=== PATIENT | male | born 1930 | race Caucasian/White ===

== ENCOUNTER 2017-03-18 07:14 | Observation (INO) ==
--- NOTE | 2017-03-18 07:38 | Emergency Department Report ---
General Adult HPI - General Chief complaint: Extremity Problem,Nontraumatic Stated complaint: L leg swollen to knee Time Seen by Provider: 03/18/17 07:27 Source: patient Mode of arrival: ambulatory Limitations: no limitations - History of Present Illness HPI narrative: 87-year-old male presents to the emergency department with the chief complaint of swelling to the left lower extremity below the knee. Patient noted onset of symptoms on of this past week and denies any trauma or injury. Patient describes his discomfort as being located in the calf. No radiation. Pain is dull. Pain is mild. He notes that the discomfort does increase with ambulation and improves with rest and positioning. Patient does note that he is anticoagulated with Coumadin due to a mechanical heart valve. No other complaints or associated symptoms. - Related Data Home Medications Medication Instructions Recorded Confirmed Warfarin Sodium 1 tab PO 6XW #0 03/04/10 03/18/17 [place]-3 Fatty Acids (Fish Oil) 1 cap PO BID #0 08/06/14 03/18/17 Vit C/Vit E AC/Lut/Copper/Zinc 1 cap PO BID #0 08/06/14 03/18/17 [Preservision Lutein Softgel] Warfarin Sodium 0.5 tab PO WEEKLY #0 04/11/15 03/18/17 Acetaminophen [Tylenol] 500 mg PO BID PRN 03/18/17 03/18/17 Allergies Allergy/AdvReac Type Severity Reaction Status Date / Time No Known Drug Allergies Allergy Unknown Verified 03/18/17 12:18 Review of Systems Constitutional: Denies: fever, chills Eyes: Denies: eye pain, vision change ENT: Denies: ear pain, throat pain Cardiovascular: Denies: chest pain, palpitations Respiratory: Denies: cough, dyspnea Gastrointestinal: Denies: abdominal pain, nausea, vomiting, diarrhea Genitourinary: Denies: urgency, dysuria Musculoskeletal: Denies: back pain, arthralgia Integumentary: Denies: erythema, rash Neurological: Denies: headache, numbness, paresthesias Psychiatric: Denies: anxiety, depression Endocrine: Denies: fatigue, heat or cold intolerance Hematological/Lymphatic: Denies: easy bleeding, easy bruising Allergic/Immunologic: Denies: facial swelling, urticaria PFSH Patient Stated Medical History Macular Degeneration Yes Other Cardiology Yes: ARTIFICIAL VALVE Hx Kidney Stones Yes Other Hematologic Yes: ON WARFARIN BECAUSE OF ARTIFICIAL VALVE Osteoarthritis Yes Shingles Yes Surgical History: Valve Replacement Family History: Reviewed and Non-contributory. - Social History Smoking status: Never smoker Substance use type: does not use Alcohol intake frequency: does not drink Physical Exam - Limitations Limitations: no limitations - General General appearance: alert, in no apparent distress - Normal Exams: Head:: Normocephalic without trauma Eyes:: Pupils are PERRLA w/ EOMI, No scleral icterus, irritation, or foreign bodies noted ENMT:: No facial trauma, nasal exudates, pharyngeal erythema, or exudates are noted Dental: No fractured, loose, or missing teeth noted Neck:: Full range of motion, without adenopathy, JVD, bruits or thyromegaly Chest/Respirations:: Clear all kendall, with good airflow, and symmetry bilaterally Cardiovascular:: Regular rate and rhythm, without murmur or gallop, Pulses 2+ all extremities, capillary refill, <2 seconds all extremities Abdomen:: Bowel sounds positive, soft, non-tender, non-distended, no hepatosplenomegaly, masses or bruits noted Lymphatic:: No lymphadenopathy, or lymphedema noted Musculoskeletal:: No tenderness, or deformity noted, good range of motion, all extremities (LLE - full range of motion. Skin is intact. No erythema. Slight edema is noted. Tender to palpation in the posterior calf without focal bony tenderness. No other tenderness in the left lower extremity. Pulses are intact. Sensation intact. Capillary refill less than 2. All other extremities are unremarkable.) Integumentary:: No rashes, hives, or bruising noted, hair and nails, without abnormality Neurological:: Patient is alert, and oriented, cranial nerves, motor/sensory/ cerebellar, exams w/o gross deficits, to observation Psychiatric:: Patient exhibits, appropriate attention, emotion and affect Course Vital Signs Temperature 98.8 F 03/18/17 07:20 Pulse Rate 65 03/18/17 07:20 Respiratory Rate 18 03/18/17 07:20 Blood Pressure 138/75 03/18/17 07:20 Pulse Oximetry 96 03/18/17 07:20 Temperature 96 F L 03/18/17 12:21 Pulse Rate 68 03/18/17 12:21 Respiratory Rate 16 03/18/17 12:21 Blood Pressure 170/74 H 03/18/17 12:21 Pulse Oximetry 97 03/18/17 12:21 Medical Decision Making - [facility] Narrative Medical decision making narrative: Labs / imaging were discussed in detail with the patient and family and questions are answered. Patient declined offered analgesic pain medication in the emergency Department. Patient is evaluated by orthopedics (Dr. Brady) in the emergency department who recommended admission for observation but no concerning findings for compartment syndrome. Patient will be admitted for further evaluation in the hospital setting. Patient is anticoagulated for a mechanical heart valve and has a hematoma in the LLE. Patient is admitted to the service of Dr. Mcgregor in improved condition. No further orders from accepting physician who is in agreement with the current plan of management. Patient and family are in agreement with the current plan of management. The potential reversal of anticoagulation will be left up to the accepting physician due to the patient having a mechanical heart valve. Patient is clinically stable in the emergency department at this time. - Differential Diagnosis DVT, calf strain, hematoma, fracture - Lab Data Result diagrams: 03/18/17 07:45 03/18/17 07:45 Lab Results 03/18/17 03/18/17 03/18/17 Range/Units 07:45 07:45 07:45 WBC 7.2 (4.5-11.0) T/MM3 RBC 3.89 L (4.50-5.90) M/MM3 Hgb 12.3 L (13.5-17.5) GM/DL Hct 36.4 L (41-53) % MCV 93.6 (80-100) UM3 MCH 31.6 (26-34) UUG MCHC 33.8 (31-37) GM/DL RDW Std Deviation 42.0 (36.9-50.2) FL Plt Count 112 L (130-400) T/MM3 MPV 10.0 (9.4-12.4) UM3 Immature Gran % (Auto) 0.3 (0.0-0.5) % Neut % (Auto) 71.8 H (33-66) % Lymph % (Auto) 16.6 L (23-45) % Mckenzie % (Auto) 9.2 H (0-9.0) % Eos % (Auto) 1.5 (0-4) % Baso % (Auto) 0.6 (0-2) % Neut # (Auto) 5.1 (1.8-7.7) T/MM3 Lymph # (Auto) 1.2 (1-4.8) T/MM3 Mckenzie # (Auto) 0.7 (0-0.8) T/MM3 Eos # (Auto) 0.1 (0-0.5) T/MM3 Baso # (Auto) 0.0 (0-0.2) T/MM3 Abs Immat Gran (auto) 0.02 (0.00-0.03) T/MM3 INR 2.33 H (0.99-1.21) Turbidity < 20 (0-20) Sodium 139 (134-144) MEQ/L Potassium 4.1 (3.6-5) MEQ/L Chloride 106 (98-107) MEQ/L Carbon Dioxide 24 (22-30) MEQ/L Anion Gap 9 (5-15) MEQ/L BUN 23.0 H (9-20) MG/DL Creatinine 1.0 (0.8-1.5) MG/DL GFR Calculation 70 BUN/Creatinine Ratio 23 (6-26) RATIO Glucose 122 H (75-110) MG/DL Calculated Osmolality 273 (261-280) MOSM/KG Calcium 8.8 (8.4-10.2) MG/DL Icterus Index < 2 (0-7) Specimen Hemolysis < 15 (0-25) - Radiology Data X-ray tibia/fibula: No acute processes. Duplex ultrasound: Negative for DVT. + 10 cm 15 cm hematoma in the calf. Arterial ultrasound: Extensive calcified plaque throughout the left lower extremity. Significant stenosis within the right superficial femoral. Disposition Clinical Impression: Hematoma Disposition: 02 To [facility] Condition: Improved Time of Disposition: 10:15 - Seen By: physician
[2017-03-18 12:12] VITALS: BMI 23.6
[2017-03-18] MEDS ORDERED: WARFARIN - PHARMACY CONSULT MC ONE (14:32)
[2017-03-18] MEDS ORDERED: ACETAMINOPHEN 500 MG TABLET PO PRN (14:33)
--- NOTE | 2017-03-18 14:43 | History & Physical Report ---
<Vannessa Ryder Eulalio - Last Filed: 03/18/17 14:36> History of Present Illness Date: 03/18/17 (PCP: Dr. 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 He is normally very active and healthy, but reports that he developed some spontaneous bruising of left thumb area a week or two ago. He did see his PCP, and was not found to have any other acute issues. Late this week, he developed progressive pain of his left leg. Overnight it became much worse, with severe pain with standing. He came into the ER, and was found to have a large hematoma of the posterior popliteal area. He is admitted for pain control and to monitor for compartment syndrome. He denies any recent injury to left leg. He identifies that he was cutting up brush two weeks ago, but does not believe that he injured his leg. He denies taking any ibuprofen. He sparingly uses Tylenol for pain. He reports that he has been using fish old for the last 4-5 months for heart health. Has changed brands of fish oil in the last few weeks to one that is "very expensive" that he purchases at a [employer] food store. He reports that it is supposed to be "very strong." He states normal dosing is 3 tabs, but he is taking two per day. He also takes a vision supplement. Denies any other herbal supplements. Does acknowledge a history of AVR, mechanical valve. Follows with Dr. Daniel Wick at [facility]. INR is monitored by Cardiology. Did have an elevated INR of 4.4 within the last two weeks, and warfarin did need to be adjusted. He is otherwise healthy. Review of Systems All systems PM: 10-point ROS was reviewed, no additional remarkable complaints except - EENMT Eyes: Present: other (Macular degeneration) Nose: Absent: nosebleeds - Cardiovascular Cardiovascular: Present: heart murmur. Absent: chest pain, dyspnea on exertion , orthopnea, edema Rhythm: Present: regular rhythm Vascular: Absent: intermittent claudication - Respiratory Respiratory: Absent: cough, dyspnea - Musculoskeletal Musculoskeletal: Present: joint swelling, myalgias (Left leg pain, worse with standing. ) - Hematologic/Lymphatic Hematologic/Lymphatic: Present: easy bruising [facility] Patient Stated Medical History Macular Degeneration Yes Other Cardiology Yes: ARTIFICIAL VALVE Hx Kidney Stones Yes Other Hematologic Yes: ON WARFARIN BECAUSE OF ARTIFICIAL VALVE Osteoarthritis Yes Shingles Yes Clinic Medical History Hematoma (Acute Medical) AVR, mechanical -Dr. Daniel Wick Ruptured tendon right shoulder 2015. Surgical History: Aortic Mechanical Valve Replacement. Left knee- Dr. Smyth Family History: Father- Cancer 90 yo Mother- Colon Ca Brother- Dementia, DM2, CHF Sister (Twin)- CHF - Social History Smoking status: Never smoker Substance use type: does not use Alcohol intake frequency: does not drink Current occupational status: employed Current residence: Apartment/Private Home Medications Home Medications Medication Instructions Recorded Confirmed Type Warfarin Sodium 1 tab PO 6XW #0 03/04/10 03/18/17 History [place]-3 Fatty Acids (Fish Oil) 1 cap PO BID #0 08/06/14 03/18/17 History Vit C/Vit E AC/Lut/Copper/Zinc 1 cap PO BID #0 08/06/14 03/18/17 History [Preservision Lutein Softgel] Warfarin Sodium 0.5 tab PO WEEKLY #0 04/11/15 03/18/17 History Acetaminophen [Tylenol] 500 mg PO BID PRN 03/18/17 03/18/17 History Allergies Allergy/AdvReac Type Severity Reaction Status Date / Time No Known Drug Allergies Allergy Unknown Verified 03/18/17 12:18 Exam Vital Signs: Temperature 96 F L 03/18/17 12:21 Pulse Rate 68 03/18/17 12:21 Respiratory Rate 16 03/18/17 12:21 Blood Pressure 170/74 H 03/18/17 12:21 Pulse Oximetry 97 03/18/17 12:21 Height/Weight/BMI: Height 1.78 m Weight 74.6 kg Body Mass Index 23.6 - Constitutional Present: no acute distress, average body habitus, cooperative - Routine HEENT Exam Head: Present: normocephalic, atraumatic Eye: Present: EOMI, PERRL ENT: Present: mucous membranes moist - Routine Neck Exam Present: supple, full ROM - Routine Respiratory Exam Present: CTA bilaterally. Absent: rhonchi, wheezes, crackles, distant breath sounds - Routine Cardiovascular Exam Present: RRR, S1, S2, murmur (Mechanical valve-click) - Routine Abdominal Exam Present: soft, non distended, non tender - Routine Extremities Exam Present: calf tenderness, tenderness. Absent: cyanosis, clubbing, Jose's sign Comments: Left calf tender, mild swelling. Warm, soft. Palpable pulse. No discoloration. Left thumb with healing bruise. - Routine Skin Exam Present: intact, dry, warm - Routine Neurological Exam Present: alert, oriented X3, moving all extremities - Routine Psychiatric Exam Present: normal affect, normal thought process, cooperative, good insight, good judgment Results - Labs CBC & Chem 7: 03/18/17 07:45 03/18/17 07:45 - Impressions - Radiology Data X-ray tibia/fibula: No acute processes. Duplex ultrasound: Negative for DVT. + 10 cm 15 cm hematoma in the calf. Arterial ultrasound: Extensive calcified plaque throughout the left lower extremity. Significant stenosis within the right superficial femoral. Assessment and Plan (1) Hematoma Current visit: Yes Status: Acute Assessment and Plan: Impression: Left leg spontaneous hematoma Chronic anticoagulation. S/P Mechanical AVR Hypertension. Spontaneous bleeding Risk for compartment syndrome. Plan: 03/18/17 Monitor leg circumference and neurovascular checks. Pain control. Pharmacy to assist with INR monitoring. INR is therapeutic. Check PTT as well. Suspect fish oil supplement may have contributed to spontaneous bleeding. Have counselled pt to stop this supplement. BP has been consistently elevated here. Will start low dose Norvasc. Repeat labs in AM for stability. DVT Prophylaxis: Coumadin Resuscitation Status: Full Code Hospital Course Summary Disclaimer: The visit summary below is not to be considered part of the above Progress Note. Hospital Course: Impression: Left leg spontaneous hematoma Chronic anticoagulation. S/P Mechanical AVR Hypertension. Spontaneous bleeding Risk for compartment syndrome 03/18/17 14:52 03/18/17 Monitor leg circumference and neurovascular checks. Pain control. Pharmacy to assist with INR monitoring. INR is therapeutic. Check PTT as well. Suspect fish oil supplement may have contributed to spontaneous bleeding. Have counselled pt to stop this supplement. BP has been consistently elevated here. Will start low dose Norvasc. Repeat labs in AM for stability. 03/18/17 14:53 <Melissa Mcgregor - Last Filed: 03/18/17 17:59> History of Present Illness Date: 03/18/17 [facility] Patient Stated Medical History Macular Degeneration Yes Other Cardiology Yes: ARTIFICIAL VALVE Hx Kidney Stones Yes Other Hematologic Yes: ON WARFARIN BECAUSE OF ARTIFICIAL VALVE Osteoarthritis Yes Shingles Yes Clinic Medical History Hematoma (Acute Medical) Exam Vital Signs: Temperature 96.9 F 03/18/17 15:20 Pulse Rate 76 03/18/17 15:20 Respiratory Rate 16 03/18/17 15:20 Blood Pressure 121/67 03/18/17 15:20 Pulse Oximetry 95 03/18/17 15:20 Height/Weight/BMI: Height 1.78 m Weight 74.6 kg Body Mass Index 23.6 Results - Labs CBC & Chem 7: 03/18/17 07:45 03/18/17 07:45 Assessment and Plan (1) Hematoma Current visit: Yes Status: Acute Assessment and Plan: Mcehe COFFMAN Mr. Bello was interviewed and examined by me. He has lots of family in the room with him. He states he is feeling much better. His leg is still a bit painful. He denies any lightheadedness dizziness. Denies any headache. He denies shortness of breath, PND or orthopnea. He denies chest discomfort, palpitations. He denies any abdominal pain, nausea, vomiting. He occasionally gets some constipation. He denies diarrhea. He denies melena and hematochezia. He generally has no problems with lower extremity edema. Currently his left lower extremity is swollen and tight in the calf region. He has one plus lower extremity edema on that side. He was evaluated by in the ER who did not feel there was indication for intervention at this time. His x-rays have been fine. His lab looks pretty good. This INR is 2.33. His mechanical valve is in the aortic position putting him at lower risk than if it would've been in the mitral position. We will try to allow his INR to trending downward. We need to stop his fish oil. His blood pressures have been elevated here so Norvasc 2.5 mg has been started. 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 Wick. In general he is alert and oriented in no acute distress.HEENT exam is unremarkable. His neck is supple without JVD. His carotids are 2+ and upstroke with out bruits. His lungs are clear bilaterally. His heart is regular. He has a crisp prosthetic click. He has a 2/6 systolic ejection murmur in the right upper sternal border. His abdomen is soft, nontender, nondistended with positive bowel sounds. His left lower extremity is as described above. His right lower extremity has no edema. I have reviewed his labs, notes and imaging. I agree with [facility]IE[facility] PHARMACIST assessment and plan. Hospital Course Summary Disclaimer: The visit summary below is not to be considered part of the above Progress Note.
--- NOTE | 2017-03-18 15:06 | Pharmacy Consult ---
Pharmacy Consult-Warfarin - Laboratory Information MU is 87yo M admitted via ED for LLE swelling, hematoma. Hx of Mechanical Aortic Valve replacement. On warfarin 5mg po daily, except 2.5mg on . Baseline INR today = 2.33. Will continue with same regimen. He has not had his dose today yet. Will give Warfarin 5mg today. No drug - drug interactions noted. Thank you.
[2017-03-18] MEDS: AMLODIPINE 2.5 MG TABLET PO SCH (15:19)
[2017-03-18] MEDS ORDERED: WARFARIN 5 MG TABLET PO SCH (16:00)
[2017-03-18] MEDS: HYDROCODONE/APAP 5mg/325mg TABLET PO PRN ×2 (16:14→21:52)
[2017-03-19] MEDS: HYDROCODONE/APAP 5mg/325mg TABLET PO PRN ×2 (06:21→22:43)
--- NOTE | 2017-03-19 08:59 | Pharmacy Consult ---
Pharmacy Consult-Warfarin - Laboratory Information 03/19/17 04:03 INR 2.31 H - Consult Information Warfarin 5mg po ordered for noon today. Thank you.
[2017-03-19] MEDS: AMLODIPINE 2.5 MG TABLET PO SCH (09:23)
[2017-03-19] MEDS: SALINE FLUSH 10ml SYRINGE IVF PRN (09:23)
--- NOTE | 2017-03-19 09:38 | Ultrasound Report ---
Indication: Left leg Swelling and redness PROCEDURE: US venous doppler LE LT: Encounter: Initial Comparison: None Technique: Color Doppler duplex and grayscale sonographic imaging of the left lower extremity was performed. Findings: There is no evidence for acute deep venous thrombosis in the left thigh. Specifically, serial graded compression was performed from the inguinal ligament to the popliteal bifurcation, on the left thigh, demonstrating appropriate compressibility of the deep venous system. In addition, color and pulsed Doppler demonstrate appropriate spontaneous flow, variation with respiration, and augmentation with calf compression. At the ankle, normal flow is identified in the posterior tibial veins; these vessels are also normal in caliber. Very large hematoma in the calf area measuring over 15 cm in maximal diameter. Impression: No evidence of acute DVT in the left lower limb. Very large hematoma in the popliteal and calf region. There is a preliminary report by [facility]. .
--- NOTE | 2017-03-19 09:40 | Ultrasound Report ---
Indication: Left leg pain, Swelling PROCEDURE: US arterial duplex LE LT: Technique: Grayscale color and duplex Doppler imaging was performed of the arterial tree of the left leg. Findings: LEFT LEG (cm/sec) Common Femoral 119 Superficial Femoral Proximal 109 Mid 92 Distal 327 Popliteal 125 EDNA-prox 63.5 MUCK MINER BLASTING-prox 68.8 EDNA-dist 33.1 MUCK MINER BLASTING-dist 52.4 Dampened waveforms throughout the left lower cavity arteries with focal velocity elevation in the distal superficial femoral artery. 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 No complete occlusion. There is a preliminary report by [facility]. .
--- NOTE | 2017-03-19 09:42 | XRay Report ---
Indication: Left leg Pain PROCEDURE: XR tib/fib LT 2V: Encounter: Initial Comparison: None Findings: There is no acute fracture, dislocation or malalignment identified. Impression: No acute osseous abnormality. .
[2017-03-19] MEDS ORDERED: POM WARFARIN 5 MG TABLET PO SCH (12:00)
--- NOTE | 2017-03-19 13:24 | Progress Note ---
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 He is normally very active and healthy, but reports that he developed some spontaneous bruising of left thumb area a week or two ago. He did see his PCP, and was not found to have any other acute issues. Late this week, he developed progressive pain of his left leg. Overnight it became much worse, with severe pain with standing. He came into the ER, and was found to have a large hematoma of the posterior popliteal area. He is admitted for pain control and to monitor for compartment syndrome. He denies any recent injury to left leg. He identifies that he was cutting up brush two weeks ago, but does not believe that he injured his leg. He denies taking any ibuprofen. He sparingly uses Tylenol for pain. He reports that he has been using fish old for the last 4-5 months for heart health. Has changed brands of fish oil in the last few weeks to one that is "very expensive" that he purchases at a [employer] store. He reports that it is supposed to be "very strong." He states normal dosing is 3 tabs, but he is taking two per day. He also takes a vision supplement. Denies any other herbal supplements. Does acknowledge a history of AVR, mechanical valve. Follows with Dr. Daniel Wick at [facility]. INR is monitored by Cardiology. Did have an elevated INR of 4.4 within the last two weeks, and warfarin did need to be adjusted. He is otherwise healthy. Today he is feeling a little better with less pain in the right calf. His distal pulses are still good. No other complaints. Eating and drinking well. No BM since admission. Will start miralax as he is on narcs for pain relief. Voiding fine. Objective Vital signs: Temperature 95.8 F L 03/19/17 07:53 Pulse Rate 55 L 03/19/17 07:53 Respiratory Rate 18 03/19/17 07:53 Blood Pressure 132/64 03/19/17 07:53 Pulse Oximetry 95 03/19/17 07:53 Rhythm: Atrial Fibrillation with Normal Ventricular Rate Height/Weight/BMI: Height 1.78 m Weight 76.2 kg Body Mass Index 23.6 Comments: Gen: alert and oriented. NAD Skin: warm and dry HEENT: NC/AT PERRL, EOMI, Sclera, lids and conjunctiva wnl. MMM. OP clear. Neck: No JVD, Carotids 2+ without bruits Lungs: clear. No rales, rhonchi or wheezes CV: regular. crisp prosthetic click. 2/6 JORDEN RSB. Abd: soft. +BS. NT/ND MS: Right lower ext calf is tight and swollen. Mild distal edema. Good DP/PT pulse. left lower ext without edema. Neuro: No focal deficits Results - Labs CBC & Chem 7: 03/19/17 04:03 03/19/17 04:03 Labs: Laboratory Results - last 48 hr 03/18/17 03/18/17 03/18/17 07:45 07:45 07:45 WBC 7.2 RBC 3.89 L Hgb 12.3 L Hct 36.4 L MCV 93.6 MCH 31.6 MCHC 33.8 RDW Std Deviation 42.0 Plt Count 112 L MPV 10.0 Immature Gran % (Auto) 0.3 Neut % (Auto) 71.8 H Lymph % (Auto) 16.6 L [place] % (Auto) 9.2 H Eos % (Auto) 1.5 Baso % (Auto) 0.6 Neut # (Auto) 5.1 Lymph # (Auto) 1.2 [place] # (Auto) 0.7 Eos # (Auto) 0.1 Baso # (Auto) 0.0 Abs Immat Gran (auto) 0.02 INR 2.33 H APTT Turbidity < 20 Sodium 139 Potassium 4.1 Chloride 106 Carbon Dioxide 24 Anion Gap 9 BUN 23.0 H Creatinine 1.0 GFR Calculation 70 BUN/Creatinine Ratio 23 Glucose 122 H Calculated Osmolality 273 Calcium 8.8 Phosphorus Icterus Index < 2 Albumin Specimen Hemolysis < 15 03/18/17 03/19/17 03/19/17 14:54 04:03 04:03 WBC 6.4 RBC 3.74 L Hgb 11.6 L Hct 35.4 L MCV 94.7 MCH 31.0 MCHC 32.8 RDW Std Deviation 42.4 Plt Count 102 L MPV 10.4 Immature Gran % (Auto) 0.2 Neut % (Auto) 66.7 H Lymph % (Auto) 19.4 L [place] % (Auto) 10.4 H Eos % (Auto) 2.8 Baso % (Auto) 0.5 Neut # (Auto) 4.2 Lymph # (Auto) 1.2 [place] # (Auto) 0.7 Eos # (Auto) 0.2 Baso # (Auto) 0.0 Abs Immat Gran (auto) 0.01 INR 2.31 H APTT 33.7 Turbidity Sodium Potassium Chloride Carbon Dioxide Anion Gap BUN Creatinine GFR Calculation BUN/Creatinine Ratio Glucose Calculated Osmolality Calcium Phosphorus Icterus Index Albumin Specimen Hemolysis 03/19/17 04:03 WBC RBC Hgb Hct MCV MCH MCHC RDW Std Deviation Plt Count MPV Immature Gran % (Auto) Neut % (Auto) Lymph % (Auto) [place] % (Auto) Eos % (Auto) Baso % (Auto) Neut # (Auto) Lymph # (Auto) [place] # (Auto) Eos # (Auto) Baso # (Auto) Abs Immat Gran (auto) INR APTT Turbidity < 20 Sodium 138 Potassium 4.2 Chloride 105 Carbon Dioxide 27 Anion Gap 6 BUN 22.0 H Creatinine 1.1 GFR Calculation 63 BUN/Creatinine Ratio 20 Glucose 112 H Calculated Osmolality 270 Calcium 8.5 Phosphorus 2.6 Icterus Index < 2 Albumin 3.6 Specimen Hemolysis < 15 Assessment and Plan (1) Hematoma Current visit: Yes Status: Acute Assessment and Plan: 1. Left leg spontaneous hematoma in the popliteal fossa -Dr. Brady examined in ED and does not feel anything needs to be done at this time -Follow distal pulses -No evidence of compartment syndrome at this time 2. Chronic anticoagulation. -S/P Mechanical AVR (no Bypasses at the time so no dx of CAD that he knows of) -Try to keep INR near 2 as possible -Stop fish oil 3. Hypertension -On norvasc 2.5mg with good control 4. Prophylaxis -coumadin His labs are stable. VSS. Would run INR to as close to 2 as possible. Stop fish oil. His PCP is Dr. Simons. Dr. Wick in [place] is his rock singer who is managing his INR. Once he is able to ambulate, he can probably be discharged with close follow up. Hospital Course Summary Disclaimer: The visit summary below is not to be considered part of the above Progress Note. Hospital Course: Impression: Left leg spontaneous hematoma Chronic anticoagulation. S/P Mechanical AVR Hypertension. Spontaneous bleeding Risk for compartment syndrome 03/18/17 14:52 03/18/17 Monitor leg circumference and neurovascular checks. Pain control. Pharmacy to assist with INR monitoring. INR is therapeutic. Check PTT as well. Suspect fish oil supplement may have contributed to spontaneous bleeding. Have counselled pt to stop this supplement. BP has been consistently elevated here. Will start low dose Norvasc. Repeat labs in AM for stability. 03/18/17 14:53
[2017-03-19] MEDS: POLYETHYL GLYCOL 3350 17gm PACKET PO SCH (17:50)
[2017-03-19] MEDS: SENNA + DOCUSATE TABLET PO SCH (20:13)
--- NOTE | 2017-03-20 07:31 | Pharmacy Consult ---
Pharmacy Consult-Warfarin - Laboratory Information 03/19/17 03/20/17 04:03 04:20 INR 2.31 H 2.49 H - Consult Information Will order warfarin 2mg po for today. Dr Mcgregor called yesterday and recommended a goal INR of 1.8-2.2 due to patient's hematoma and spontaneous bleeding episodes. Thank you.
[2017-03-20] MEDS: POLYETHYL GLYCOL 3350 17gm PACKET PO SCH (08:25)
[2017-03-20] MEDS: AMLODIPINE 2.5 MG TABLET PO SCH (08:25)
[2017-03-20] MEDS: HYDROCODONE/APAP 5mg/325mg TABLET PO PRN ×2 (11:02→15:03)
[2017-03-20] MEDS ORDERED: WARFARIN 2 MG TABLET PO SCH (12:00)
--- NOTE | 2017-03-20 17:44 | Orthopedic Consult Note ---
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 He began to notice swelling to the left calf 1 week ago. It became more severe overnight he was seen in the ER this weekend. Ultrasound showed large hematoma in the particular area as well as the calf. He was admitted for pain control. I just saw him in the ER and was not concerned for compartment syndrome at that time. He told me in the emergency room recently his INR was very high. In the ER it was 2.2. Review of Systems - Constitutional Constitutional: Absent: chills, fever(s), night sweats - Cardiovascular Cardiovascular: Absent: chest pain, palpitations - Respiratory Respiratory: Absent: cough, dyspnea - Gastrointestinal Gastrointestinal: Absent: abdominal pain, nausea, vomiting - Musculoskeletal Musculoskeletal: Present: as per HPI - Integumentary/Breasts Integumentary: Absent: lesions, rash - Neurological Neurological: Absent: numbness, tingling PFSH Patient Stated Medical History Macular Degeneration Yes Other Cardiology Yes: ARTIFICIAL VALVE Hx Kidney Stones Yes Other Hematologic Yes: 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 Left knee- Dr. Smyth - Social History Smoking status: Never smoker Current residence: Apartment/Private Home Medications Home Medications Medication Instructions Recorded Confirmed Type Warfarin Sodium 1 tab PO 6XW #0 03/04/10 03/18/17 History [place]-3 Fatty Acids (Fish Oil) 1 cap PO BID #0 08/06/14 03/18/17 History Vit C/Vit E AC/Lut/Copper/Zinc 1 cap PO BID #0 08/06/14 03/18/17 History [Preservision Lutein Softgel] Warfarin Sodium 0.5 tab PO WEEKLY #0 04/11/15 03/18/17 History Acetaminophen [Tylenol] 500 mg PO BID PRN 03/18/17 03/18/17 History Allergies Allergy/AdvReac Type Severity Reaction Status Date / Time No Known Drug Allergies Allergy Unknown Verified 03/18/17 12:18 Orthopedic Exam Vital signs: Temperature 97.6 F 03/20/17 15:08 Pulse Rate 67 03/20/17 15:08 Respiratory Rate 16 03/20/17 15:08 Blood Pressure 127/65 03/20/17 15:08 Pulse Oximetry 93 03/20/17 15:08 - Constitutional General Appearance: Present: no acute distress, well developed, well nourished - Respiratory Exam Present: non-labored - Cardiovascular Exam Present: pedal pulses intact - Extremities Exam Present: calf tenderness, tenderness. Absent: cyanosis, clubbing, Jose's sign Comments: Compartments in the leg are compressible. Minimal discomfort with passive range of motion of the toes and the ankle. - Integumentary Exam Present: pink, warm, dry - Neurological Exam Present: intact to light touch, no deficits - Psychiatric Exam Present: alert, normal affect - Labs Result Diagrams: 03/20/17 04:20 03/20/17 04:20 Abnormal lab results 03/20/17 03/20/17 03/20/17 Range/Units 04:20 04:20 04:20 RBC 3.55 L (4.50-5.90) M/MM3 Hgb 11.1 L (13.5-17.5) GM/DL Hct 34.0 L (41-53) % Plt Count 103 L (130-400) T/MM3 Neut % (Auto) 66.6 H (33-66) % Lymph % (Auto) 20.6 L (23-45) % [place] % (Auto) 10.4 H (0-9.0) % INR 2.49 H (0.99-1.21) BUN 21.0 H (9-20) MG/DL H & H 03/19/17 03/20/17 Range/Units 04:03 04:20 Hgb 11.6 L 11.1 L (13.5-17.5) GM/DL Hct 35.4 L 34.0 L (41-53) % Coagulation 03/19/17 03/20/17 Range/Units 04:03 04:20 INR 2.31 H 2.49 H (0.99-1.21) Impression and Recommendation (1) Hematoma Current visit: Yes Status: Acute I recommended weightbearing as tolerated when he is not up to elevate the leg. They can try a warm heating pad as needed. Close monitoring of his INR. I do not see any signs of compartment syndrome at this time. I discussed with him and his family that I will take several weeks to completely resolve. Hospital Course Summary Disclaimer: The visit summary below is not to be considered part of the above Progress Note. Hospital Course: Impression: Left leg spontaneous hematoma Chronic anticoagulation. S/P Mechanical AVR Hypertension. Spontaneous bleeding Risk for compartment syndrome 03/18/17 14:52 03/18/17 Monitor leg circumference and neurovascular checks. Pain control. Pharmacy to assist with INR monitoring. INR is therapeutic. Check PTT as well. Suspect fish oil supplement may have contributed to spontaneous bleeding. Have counselled pt to stop this supplement. BP has been consistently elevated here. Will start low dose Norvasc. Repeat labs in AM for stability. 03/18/17 14:53
--- NOTE | 2017-03-20 18:55 | Progress Note ---
- Date 03/20/17 Subjective: Patient was seen in his room earlier this evening. He states he is feeling okay. He continues to have pain in his calf when he gets up to ambulate, but it is a little better. He denies any pain elsewhere. He is eating and drinking well. He denies any shortness of breath. Objective Vital signs: Temperature 97.6 F 03/20/17 15:08 Pulse Rate 67 03/20/17 15:08 Respiratory Rate 16 03/20/17 15:08 Blood Pressure 127/65 03/20/17 15:08 Pulse Oximetry 93 03/20/17 15:08 Rhythm: Atrial Fibrillation with Normal Ventricular Rate Height/Weight/BMI: Height 1.78 m Weight 76.4 kg Body Mass Index 23.6 Comments: GEN-alert, oriented, no acute distress- CV-regular rate and rhythm with positive prosthetic click CHEST-clear to auscultation ABD-soft and nontender with positive bowel sounds -no [place] EXT-left leg no edema, he has swelling in the right calf and pretibial area. The calf is tender but he states is less so than it has been. No edema in the foot. Foot is warm to touch. Pulses are difficult to feel. The nurse was able to find good pulses with Doppler this morning. NEURO-no focal deficits SKIN-warm and dry without rashes Results - Labs CBC & Chem 7: 03/20/17 04:20 03/20/17 04:20 Assessment and Plan (1) Hematoma Current visit: Yes Status: Acute Assessment and Plan: 03/20/2017 1. Left leg spontaneous hematoma in the popliteal fossa -Dr. Brady examined in ED and does not feel anything needs to be done at this time. I did talk with Dr. Brady and he stated the patient can be weightbearing as tolerated. He is not up he should have his leg elevated. He can try a warm heating pad as needed. -Follow distal pulses -No evidence of compartment syndrome at this time 2. Chronic anticoagulation. -S/P Mechanical AVR (no Bypasses at the time so no dx of CAD that he knows of) -Try to keep INR near 2 as possible -Stop fish oil 3. Hypertension -On norvasc 2.5mg with good control 4. Prophylaxis -coumadin Overall, the patient is a little better. His spirits are good. We'll consult PT and OT to see if he will need placement prior to returning home. He may benefit from inpatient rehabilitation versus [facility] versus other. Hospital Course Summary Disclaimer: The visit summary below is not to be considered part of the above Progress Note. Hospital Course: Impression: Left leg spontaneous hematoma Chronic anticoagulation. S/P Mechanical AVR Hypertension. Spontaneous bleeding Risk for compartment syndrome 03/18/17 14:52 03/18/17 Monitor leg circumference and neurovascular checks. Pain control. Pharmacy to assist with INR monitoring. INR is therapeutic. Check PTT as well. Suspect fish oil supplement may have contributed to spontaneous bleeding. Have counselled pt to stop this supplement. BP has been consistently elevated here. Will start low dose Norvasc. Repeat labs in AM for stability. 03/19/2017 1. Left leg spontaneous hematoma in the popliteal fossa -Dr. Brady examined in ED and does not feel anything needs to be done at this time -Follow distal pulses -No evidence of compartment syndrome at this time 2. Chronic anticoagulation. -S/P Mechanical AVR (no Bypasses at the time so no dx of CAD that he knows of) -Try to keep INR near 2 as possible -Stop fish oil 3. Hypertension -On norvasc 2.5mg with good control 4. Prophylaxis -coumadin His labs are stable. VSS. Would run INR to as close to 2 as possible. Stop fish oil. His PCP is Dr. Simons. Dr. Wick in [place] is his risk control manager who is managing his INR. Once he is able to ambulate, he can probably be discharged with close follow up.
[2017-03-20] MEDS: SENNA + DOCUSATE TABLET PO SCH (20:56)
[2017-03-20] MEDS: SALINE FLUSH 10ml SYRINGE IVF PRN (20:57)
[2017-03-21] MEDS: HYDROCODONE/APAP 5mg/325mg TABLET PO PRN ×2 (02:08→09:02)
[2017-03-21] MEDS: ARTIFICIAL TEARS 15ml EACH EYE PRN ×6 (02:09→16:51)
--- NOTE | 2017-03-21 07:41 | Pharmacy Consult ---
Pharmacy Consult-Warfarin - Laboratory Information 03/19/17 03/20/17 03/21/17 04:03 04:20 04:34 INR 2.31 H 2.49 H 2.62 H - Consult Information Warfarin 1mg po is ordered for today. Will try to keep INR as close to 2.0 as possible. Thank you.
--- NOTE | 2017-03-21 07:59 | Orthopedic Progress Note ---
Date: Subjective/Severity of Illness: Zechariah has no new complaints. INR is 2.62. Orthopedic Objective PO Vital signs: Temperature 98.3 F 03/20/17 23:00 Pulse Rate 68 03/20/17 23:00 Respiratory Rate 18 03/20/17 23:00 Blood Pressure 137/71 03/20/17 23:00 Pulse Oximetry 96 03/20/17 23:00 Height and Weight: Height 5 ft 10 in Weight 168 lb 6.931 oz Body Mass Index 23.6 - Constitutional General Appearance: Present: no acute distress, well developed, well nourished - Respiratory Exam Present: non-labored - Cardiovascular Exam Present: pedal pulses intact - Integumentary Exam Present: pink, warm, dry - Neurological Exam Present: intact to light touch, no deficits - Psychiatric Exam Present: alert, normal affect - Labs Result Diagrams: 03/21/17 04:34 03/20/17 04:20 Abnormal lab results 03/20/17 03/20/17 03/21/17 Range/Units 04:20 04:20 04:34 RBC 3.55 L (4.50-5.90) M/MM3 Hgb 11.1 L (13.5-17.5) GM/DL Hct 34.0 L (41-53) % Plt Count 103 L (130-400) T/MM3 Neut % (Auto) 66.6 H (33-66) % Lymph % (Auto) 20.6 L (23-45) % [place] % (Auto) 10.4 H (0-9.0) % Neutrophils % (Manual) (33-66) % Lymphocytes % (Manual) (23-45) % Monocytes % (Manual) (0-9.0) % Lymphocytes # (Manual) (1-4.8) T/MM3 INR 2.62 H (0.99-1.21) BUN 21.0 H (9-20) MG/DL 03/21/17 Range/Units 04:34 RBC 3.45 L (4.50-5.90) M/MM3 Hgb 10.7 L (13.5-17.5) GM/DL Hct 32.7 L (41-53) % Plt Count 112 L (130-400) T/MM3 Neut % (Auto) (33-66) % Lymph % (Auto) (23-45) % [place] % (Auto) (0-9.0) % Neutrophils % (Manual) 74.0 H (33-66) % Lymphocytes % (Manual) 13.0 L (23-45) % Monocytes % (Manual) 10.0 H (0-9.0) % Lymphocytes # (Manual) 0.8 L (1-4.8) T/MM3 INR (0.99-1.21) BUN (9-20) MG/DL H & H 03/19/17 03/20/17 03/21/17 Range/Units 04:03 04:20 04:34 Hgb 11.6 L 11.1 L 10.7 L (13.5-17.5) GM/DL Hct 35.4 L 34.0 L 32.7 L (41-53) % Coagulation 03/19/17 03/20/17 03/21/17 Range/Units 04:03 04:20 04:34 INR 2.31 H 2.49 H 2.62 H (0.99-1.21) Orthopedic Assessment and Plan (1) Hematoma Status: Acute Assessment and Plan: continue current care. Hospital Course Summary Disclaimer: The visit summary below is not to be considered part of the above Progress Note. Hospital Course: Impression: Left leg spontaneous hematoma Chronic anticoagulation. S/P Mechanical AVR Hypertension. Spontaneous bleeding Risk for compartment syndrome 03/18/17 14:52 03/18/17 Monitor leg circumference and neurovascular checks. Pain control. Pharmacy to assist with INR monitoring. INR is therapeutic. Check PTT as well. Suspect fish oil supplement may have contributed to spontaneous bleeding. Have counselled pt to stop this supplement. BP has been consistently elevated here. Will start low dose Norvasc. Repeat labs in AM for stability. 03/19/2017 1. Left leg spontaneous hematoma in the popliteal fossa -Dr. Brady examined in ED and does not feel anything needs to be done at this time -Follow distal pulses -No evidence of compartment syndrome at this time 2. Chronic anticoagulation. -S/P Mechanical AVR (no Bypasses at the time so no dx of CAD that he knows of) -Try to keep INR near 2 as possible -Stop fish oil 3. Hypertension -On norvasc 2.5mg with good control 4. Prophylaxis -coumadin His labs are stable. VSS. Would run INR to as close to 2 as possible. Stop fish oil. His PCP is Dr. Simons. Dr. Wick in [place] is his return to vendor who is managing his INR. Once he is able to ambulate, he can probably be discharged with close follow up.
[2017-03-21 08:29] VITALS: RESP 16
[2017-03-21] MEDS: AMLODIPINE 2.5 MG TABLET PO SCH (08:47)
[2017-03-21] MEDS: POLYETHYL GLYCOL 3350 17gm PACKET PO SCH (08:48)
[2017-03-21] MEDS ORDERED: WARFARIN 1 MG TABLET PO SCH (12:00)
[2017-03-21 15:23] VITALS: BP 126/64; PULSE 69; TEMP 98.1; O2SAT 96
--- NOTE | 2017-03-21 15:36 | Discharge Summary ---
<Orquidea Negro - Last Filed: 03/21/17 16:42> Discharge Information Date of admission: 03/18/17 11:44 Anticipated date of discharge: 03/21/17 Attending Physician: Ashlee Jain MD Primary care physician: Jatinder Simons MD Executor Of Estate - Dr Daniel Wick Consults: 03/20/17 16:45 Physician Consult [CONS] Routine Consulting Provider: Jose Brady Reason For Exam: hematoma calf Ordering Provider has Notified Calendering Machine Operator: Yes - Discharge Diagnosis (1) Hematoma Status: Acute Left leg spontaneous hematoma Chronic anticoagulation. S/P Mechanical AVR Hypertension - Laboratory Labs: 03/21/17 04:34 03/20/17 04:20 Laboratory Tests 03/18/17 03/19/17 03/20/17 07:45 04:03 04:20 INR 2.33 H 2.31 H 2.49 H 03/21/17 04:34 INR 2.62 H - Radiology Radiology: Date of Exam: 03/18/17 Type of Exam(s): US venous doppler LE LT Reason for Exam(s): Swelling Findings: There is no evidence for acute deep venous thrombosis in the left thigh. Specifically, serial graded compression was performed from the inguinal ligament to the popliteal bifurcation, on the left thigh, demonstrating appropriate compressibility of the deep venous system. In addition, color and pulsed Doppler demonstrate appropriate spontaneous flow, variation with respiration, and augmentation with calf compression. At the ankle, normal flow is identified in the posterior tibial veins; these vessels are also normal in caliber. Very large hematoma in the calf area measuring over 15 cm in maximal diameter. Impression: No evidence of acute DVT in the left lower limb. Very large hematoma in the popliteal and calf region. Type of Exam(s): XR tib/fib LT 2V Reason for Exam(s): Pain Findings: There is no acute fracture, dislocation or malalignment identified. Impression: No acute osseous abnormality. Type of Exam(s): US arterial duplex LE LT Reason for Exam(s): Pain, Swelling PROCEDURE: US arterial duplex LE LT: Technique: Grayscale color and duplex Doppler imaging was performed of the arterial tree of the left leg. Findings: LEFT LEG (cm/sec) Common Femoral 119 Superficial Femoral Proximal 109 Mid 92 Distal 327 Popliteal 125 EDNA-prox 63.5 GAUGE CHECKER-prox 68.8 EDNA-dist 33.1 GAUGE CHECKER-dist 52.4 Dampened waveforms throughout the left lower cavity arteries with focal velocity elevation in the distal superficial femoral artery. 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 No complete occlusion. History of Present Illness HPI: Zechariah is a very pleasant 87 yo male who works here at [employer]. He is normally very active and healthy, but reports that he developed some spontaneous bruising of left thumb area a week or two ago. He did see his PCP, and was not found to have any other acute issues. Late this week, he developed progressive pain of his left leg. Overnight it became much worse, with severe pain with standing. He came into the ER, and was found to have a large hematoma of the posterior popliteal area. He is admitted for pain control and to monitor for compartment syndrome. He denies any recent injury to left leg. He identifies that he was cutting up brush two weeks ago, but does not believe that he injured his leg. He denies taking any ibuprofen. He sparingly uses Tylenol for pain. He reports that he has been using fish old for the last 4-5 months for heart health. Has changed brands of fish oil in the last few weeks to one that is "very expensive" that he purchases at a health food store. He reports that it is supposed to be "very strong." He states normal dosing is 3 tabs, but he is taking two per day. He also takes a vision supplement. Denies any other herbal supplements. Does acknowledge a history of AVR, mechanical valve. Follows with Dr. Daniel Wick at [facility]. INR is monitored by Cardiology. Did have an elevated INR of 4.4 within the last two weeks, and warfarin did need to be adjusted. He is otherwise healthy. Objective Vital signs: Temperature 98.1 F 03/21/17 15:00 Pulse Rate 69 03/21/17 15:00 Respiratory Rate 16 03/21/17 15:00 Blood Pressure 126/64 03/21/17 15:00 Pulse Oximetry 96 03/21/17 15:00 Rhythm: Atrial Fibrillation with Normal Ventricular Rate Height/Weight/BMI: Height 1.78 m Weight 75.7 kg Body Mass Index 23.6 - Constitutional Present: no acute distress, well nourished, well developed - Routine HEENT Exam Head: Present: normocephalic, atraumatic Eye: Present: EOMI ENT: Present: mucous membranes moist - Routine Respiratory Exam Present: CTA bilaterally. Absent: wheezes - Routine Cardiovascular Exam Present: irregularly irregular. Absent: murmur - Routine Abdominal Exam Present: soft, normoactive bowel sounds, non distended. Absent: tenderness - Routine Extremities Exam Present: edema (swelling to L lower leg from knee to toes. Bruising noted posteriorly. Mildly tender with palpation. ), no edema (RLL), normal capillary refill - Routine Skin Exam Present: dry, warm - Routine Neurological Exam Present: alert, oriented X3 - Routine Lymphatic Exam Lymphatic: Absent: adenopathy - Routine Psychiatric Exam Present: normal affect, cooperative Hospital Course This is a general summary of the patient's hospital course. For more details refer to the complete medical record. Hospital course: Patient was admitted to the hospital through the emergency room due to spontaneous hematoma in his left lower leg. He had an arterial sono of the left lower extremity which showed greater than 75% stenosis in the distal superficial femoral artery. Venous Doppler revealed large hematoma in the popliteal and calf region. Tib-fib x-ray was negative. His INR was 3.52 on , but was 2.33 on admission on 03/18/17. His Coumadin was decreased to keep his INR as close to 2.0 as possible, given the mechanical valve. His pain was controlled with Tylenol and [place]. He was seen by Dr. Brady who did not believe he needed further intervention. There was no evidence of compartment syndrome. His fish oil was discontinued as this was thought to be a possible cause of his spontaneous bleed. He was started on low dose of Norvasc during his stay as his blood pressures were elevated. He worked with PT/OT and was able to ambulate with a walker. He was felt to be stable to be discharged home with home health and a walker. Dr. Simons was an performed of his discharge. Dr. Wick's office was also notified and given the recent INR results and Coumadin dosage. He will take 2 mg tomorrow and 2 mg and have his INR drawn by home health on . They are to call the results to Dr. Wick's PA (Camelia) at [phone]. Time spent with patient: greater than 35 minutes DVT Prophylaxis: Coumadin Discharge Plan - Discharge Disposition Disposition: [facility] Home [facility] *Condition: Stable *Reason For Visit: Hematoma - Discharge Medications *Discharge Medications: New Hydrocodone/APAP 5/325 [[place] 5/325] 1 tab PO Q4H PRN #15 tab PRN Reason: Pain Warfarin [Coumadin] 2 mg PO NOON #30 tab Acetaminophen [Tylenol] 500 mg PO Q5H PRN tablet PRN Reason: Discomfort Amlodipine [Norvasc] 2.5 mg PO DAILY #30 tab Continue Vit C/Vit E AC/Lut/Copper/Zinc [Preservision Lutein Softgel] 1 cap PO BID #0 Discontinued Warfarin Sodium 1 tab PO 6XW #0 [place]-3 Fatty Acids (Fish Oil) 1 cap PO BID #0 Acetaminophen [Tylenol] 500 mg PO BID PRN PRN Reason: Pain Warfarin Sodium 0.5 tab PO WEEKLY #0 - Discharge Packet/Instructions *Diet: Normal diet *Activity: Up with walker as tolerated. *Wound Care: Not applicable Additional Instructions: Home health will draw your INR (protime) on . They will call the results to Dr. Wick's office and Dr. Wick's office will give further instructions on your Coumadin dosage at that time. *Expected Signs/Symptoms: Decreased swelling to the calf and less pain. *Notify Physician if: You develop fever, increasing pain, increasing swelling, or significant redness or warmth to the area. *During Business Hours Contact: Dr. Simons's office *After Business Hours Contact: Dr. Simons's office and follow after hours instructions *Pending Lab/Results: No Pending Lab - Referrals/Follow Up *Referrals/Follow Up: Jatinder Simons MD [Family Provider] - 1 Week - Patient Handouts Patient Handouts: Warfarin (By mouth) - Dismissal Complete Discharge Instructions are:: Complete <Jain,Ashlee Kenton - Last Filed: 03/21/17 17:15> Discharge Information Date of admission: 03/18/17 11:44 Attending Physician: Ashlee Jain MD Primary care physician: Jatinder Simons MD Consults: 03/20/17 IRU Screening [Inpatient Rehab Screening] [CONS] Routine 03/20/17 16:10 Physician Consult [CONS] Routine Consulting Provider: Jose Brady Reason For Exam: hematoma left calf Ordering Provider has Notified Calendering Machine Operator: Yes Comment: I will notify him 03/20/17 16:45 Physician Consult [CONS] Routine Consulting Provider: Jose Brady Reason For Exam: hematoma calf Ordering Provider has Notified Calendering Machine Operator: Yes - Discharge Diagnosis (1) Hematoma Status: Acute - Laboratory Labs: 03/21/17 04:34 03/20/17 04:20 Objective Vital signs: Temperature 98.1 F 03/21/17 15:00 Pulse Rate 69 03/21/17 15:00 Respiratory Rate 16 03/21/17 15:00 Blood Pressure 126/64 03/21/17 15:00 Pulse Oximetry 96 03/21/17 15:00 Height/Weight/BMI: Height 1.78 m Weight 75.7 kg Body Mass Index 23.6 Hospital Course This is a general summary of the patient's hospital course. For more details refer to the complete medical record. Hospital course: 03/21/2017-I reviewed this chart, the patient history, and the THERMAL TECHNICIAN's/PA's documented findings as above. We discussed and formulated the assessment and plan as above with the additions below.-Dr. Jain The patient was seen in his room today after physical therapy. He was ambulating better today using a walker. PT thought he was doing well enough to go home with home health. It was thought that he was walking to well to benefit from inpatient rehabilitation. The patient has been eating and drinking well. Pain in his calf is minimal at rest but is painful with activity. Fortunately he is able to get up and walk now. On exam he is alert and in no acute distress. Chest is clear to auscultation. Cardiovascular reveals a regular rate and rhythm. Abdomen is soft and nontender. Extremities reveal continued swelling of the left calf, unchanged from yesterday. No edema in either foot. Plan for discharge to home today with home health. Dr. Wick's physician pier master assistant was notified of recent hematoma and changes in Coumadin. Home health will draw INR and fax to Dr. Wick's PA. The patient was notified to discontinue use of fish oil. I did call and talk with Dr. Simons earlier today about the patient's discharge. The patient is follow-up with Dr. Simons next week. Greater than 30 minutes of time was spent on dismissal day.
== END 2017-03-21 18:15 | disposition home health service (06) ==
LOC: MED 07:14 → ED 07:14 → SUATTDRO 11:44 → MED 12:05
PROVIDERS: ADMIT Internal Medicine Cardiovascular Disease; ATTEND Internal Medicine